=== PATIENT | female | born 1990 | race Two or more races ===

== ENCOUNTER 2022-07-04 08:42 | Outpatient (CLI) | payer BC | END 2022-07-04 08:43 | disposition home or self-care (01) | LOC: CSHULT 08:42 | PROVIDERS: ATTEND Internal Medicine | DX: B18.1 Chronic viral hepatitis B without delta-agent (principal) | CPT/HCPCS: 76705 ==

== ENCOUNTER 2023-11-12 14:31 | Emergency (ER) | payer BC, OTHER ==
[2023-11-12] MEDS ORDERED: Lidocaine 1% (PF) 30 ML VIAL ONE (17:25)
[2023-11-12] MEDS ORDERED: Morphine 4 MG/ML VIAL ONE (17:25)
== END 2023-11-12 19:12 | disposition home or self-care (01) ==
LOC: CSHERS 14:31
DX: S52.301A Unspecified fracture of shaft of right radius, initial encounter for closed fracture (principal); W01.0XXA Fall on same level from slipping, tripping and stumbling without subsequent striking against object, initial encounter
CPT/HCPCS: 29105; 96374; J2001; J2270